=== PATIENT | male | born 1970 | race Asian ===

== ENCOUNTER → 2021-03-06 | Outpatient (CLI) | payer BC ==
--- NOTE | 2021-03-06 12:18 | REP ---
INDICATION: LEFT BREAST PAIN. History of left breast discomfort in the upper outer quadrant and into the axillary tail, intermittently for 4-6 months. COMPARISON: Mammography no comparison breast imaging is available at this juncture. TECHNIQUE: Bilateral CC and MLO) view(s) were taken. 3D tomography is utilized. FINDINGS: Breast parenchyma is heterogeneously dense in a pattern which may inhibit the sensitivity of mammography. No asymmetry or dominant density is seen. No micro calcific grouping or worrisome skin changes appreciated. A normal appearing lymph node is seen in the left axilla. 3D tomography shows no additional abnormality. The [facility] volumetric breast density pattern is C. Targeted upper outer quadrant and axillary left breast sonography: Heterogeneous fibroglandular background echotexture is seen. No mass or cyst is seen. No suspicious abnormality.. IMPRESSION: BIRADS/ACR category 2 benign mammographic and left breast sonographic findings.. This patient's Tyrer-Cuzick lifetime breast cancer risk assessment score is 11.8%. This mammogram was interpreted with the aid of an FDA-approved computer-aided detection system. The patient states she had a clinical breast exam in over a year ago. The patient letter being requested is M2 dense. RECOMMENDATION: Repeat screening mammography recommended 1 year (for women over 40). <Electronically signed by Harlan Garibay > 03/06/21 2207
== END ==
LOC: M WHC 10:24
DX: N64.4 Mastodynia (principal)
CPT/HCPCS: 76642; 77066; G0279